=== PATIENT | male | born 1945 | race Caucasian/White ===

== ENCOUNTER 2017-03-27 01:28 | Emergency (ER) | payer OTHER ==
[2017-03-27] MEDS ORDERED: ONDANSETRON HCL IV 4 MG/2 ML VIAL IVP ONE (01:30)
[2017-03-27] MEDS ORDERED: MORPHINE SULFATE 5 MG/ML PFS IVP ONE ×2 (01:31→02:12)
--- NOTE | 2017-03-27 01:41 | Emergency Department Record ---
History of Present Illness - General Stated Complaint: POSSIBLE KIDNEY STONE Time Seen by Provider: 03/27/17 01:30 Source: Patient Mode of Arrival: Ambulatory Limitations: No limitations - History of Present Illness Initial Comments: 72 yo male presents to ED with a CC of right sided flan and abdominal pain sympotms that began 1.5 days ago, worsened tonight. Patient believes that he may have a kidney stone. Patient denies previous kidney stones, denies fevers, chills, or change in stools but reports nausea and vomiting x 1. Patient denies health problems at his baseline, and denies previous abdominal surgery. MD Complaint: Flank pain Onset/Timin -: Hour(s) Location: R Flank Radiation: RLQ Severity: Moderate Quality: Aching Consistency: Constant Improves With: Nothing Worsens With: Nothing Associated Symptoms: Denies other symptoms - Related Data Home Medications Medication Instructions Recorded Confirmed Last Taken Ranitidine HCl [Zantac] 75 mg PO DAILY 03/27/17 03/27/17 Unknown Previous Rx's Medication Instructions Recorded Hydrocodone/Acetaminophen [[place] 1 each PO Q6H PRN #15 tablet 03/27/17 5-325 Tablet] Tamsulosin HCl [Flomax] 0.4 mg PO DAILY #10 cap.er.24h 03/27/17 Allergies Allergy/AdvReac Type Severity Reaction Status Date / Time No Known Drug Allergies Allergy Verified 03/27/17 01:41 Review of Systems Constitutional: Denies: Chills, Fever, Malaise, Night sweats Eyes: Denies: Eye discharge, Eye pain ENT: Denies: Congestion, Ear pain, Epistaxis Respiratory: Denies: Cough, Dyspnea Cardiovascular: Denies: Chest pain, Dyspnea on exertion Endocrine: Denies: Fatigue, Heat or cold intolerance Gastrointestinal: Reports: Abdominal pain, Nausea, Vomiting. Denies: Constipation Genitourinary: Denies: Testicular pain, Testicular mass Musculoskeletal: Reports: Back pain. Denies: Arthralgia, Gout, Joint swelling Skin: Denies: Bruising, Change in color Neurological: Denies: Abnormal gait, Confusion, Headache, Seizure Psychiatric: Denies: Anxiety Hematological/Lymphatic: Denies: Anemia, Blood Clots Physical Exam - General General Appearance: Alert, Oriented x3, Cooperative, Moderate distress Limitations: No limitations - Head Head exam: Atraumatic, Normocephalic, Normal inspection Head exam detail: negative: Abrasion, Contusion, Davis's sign, General tenderness, Hematoma, Laceration - Eye Eye exam: Normal appearance. negative: Conjunctival injection, Periorbital swelling, Periorbital tenderness, Scleral icterus - ENT Ear exam: negative: Auricular hematoma, Auricular trauma Nasal Exam: negative: Active bleeding, Discharge, Dried blood, Foreign body Mouth exam: negative: Drooling, Laceration, Muffled voice, Tongue elevation - Neck Neck exam: Normal inspection. negative: Meningismus, Tenderness - Respiratory Respiratory exam: Normal lung sounds bilaterally. negative: Rales, Respiratory distress, Rhonchi, Stridor - Cardiovascular Cardiovascular Exam: Regular rate, Normal rhythm, Normal heart sounds - GI/Abdominal GI/Abdominal exam: Soft, Tenderness (Mild TTP RUQ, RLQ on examination). negative: Rebound, Rigid - Rectal Rectal exam: Deferred - exam: Deferred - Extremities Extremities exam: Normal inspection. negative: Calf tenderness, Pedal edema, Tenderness - Back Back exam: Reports: CVA tenderness (R). Denies: Paraspinal tenderness, Rash noted - Neurological Neurological exam: Alert, Normal gait, Oriented X3 - Psychiatric Psychiatric exam: Normal affect, Normal mood - Skin Skin exam: Normal color. negative: Abrasion Type of lesion: negative: abrasion Course - Reevaluation(s) Reevaluation #1: 03/27/17 02:18 Labs reviewed, UA demonstrates moderate amount of blood, labs are otherwise grossly unremarkable for an acute process. CT Abdomen and Pelvis: 4 mm obstructive calculus at the right ureterovesicular junction resulting in moderate right hydroureter and hydronephrosis. Patient was updated on all results, given repeat dose of Morphine and now Toradol for returning pain symptoms. Will re-evaluate in 20-30 minutes. Medical Decision Making - Lab Data Result diagrams: 03/27/17 01:40 03/27/17 01:40 Disposition Disposition: Discharge Clinical Impression: Kidney stone on right side Disposition: Home, Self-Care Condition: (2) Stable Instructions: Kidney Stones (ED) Additional Instructions: Return to ED if your symptoms worsen or if you have any concerns. Rosedale and Flomax as directed. Follow-up with Dr. Lay in 3-5 days in the [facility]. Prescriptions: Hydrocodone/Acetaminophen [[place] 5-325 Tablet] 1 each PO Q6H PRN #15 tablet PRN Reason: Pain - Moderate (5-7) Tamsulosin HCl [Flomax] 0.4 mg PO DAILY #10 cap.er.24h Referrals: HELEN LAY M.D. [MEDICAL DOCTOR] - [facility] [Provider Group] Forms: Patient Portal Access Time of Disposition: 02:50 Quality - Quality Measures Quality Measures: N/A - Blood Pressure Screening Does Patient Have Any of the Following: No Blood Pressure Classification: Pre-Hypertensive BP Reading Systolic Measurement: 146 Diastolic Measurement: 87 Screening for High Blood Pressure: < Pre-Hypertensive BP, F/U Documented > [ G8950] Pre-Hypertensive Follow-up Interventions: Referral to alternative/primary care provider.
[2017-03-27] MEDS ORDERED: 0.9 % SODIUM CHLORIDE 1000ML 1,000 ML IV SCH (01:45)
[2017-03-27 01:47] LABS: BASO % 0.2 % (0-6); EOS % 1.1 % (0-6); GRAN % 67.7 % (47-80); HEMATOCRIT 44.2 % (42.0-52.0); HEMOGLOBIN 15.5 gm/dl (14.0-18.0); LYMPH % 19.8 % (16-45); MEAN CELL VOLUME 88.8 fl (81-97); MEAN CORPUSCULAR HEMOGLOBIN 31.1 pg (27-33); MEAN CORPUSCULAR HGB CONC 35.1 g/dl (32-36); MEAN PLATELET VOLUME 11.5 fl (7.4-10.4); MONO % 11.2 % (0-9); PLATELET COUNT 149 K/uL (130-400); RED BLOOD COUNT 4.98 M/uL (4.40-5.70); WHITE BLOOD COUNT W/O DIFF 10.8 K/uL (4.2-12.2)
[2017-03-27 01:48] LABS: URINE APPEARANCE CLEAR; URINE BILIRUBIN NEGATIVE (NEGATIVE); URINE BLOOD MODERATE (NEGATIVE); URINE COLOR YELLOW; URINE GLUCOSE (UA) NEGATIVE (NEGATIVE); URINE KETONE NEGATIVE (NEGATIVE); URINE LEUKOCYTE ESTERASE NEGATIVE (NEGATIVE); URINE NITRITE NEGATIVE (NEGATIVE); URINE PROTEIN NEGATIVE (NEGATIVE); URINE UROBILINOGEN 0.2 E.U./dL (0.20 - 1.00)
[2017-03-27 02:01] LABS: URINE BACTERIA NONE SEEN; URINE EPITHELIAL CELLS 0 - 2 (FEW); URINE WBC 0 - 2 (0-2/hpf)
[2017-03-27 02:06] LABS: ALB/GLOB RATIO 1.4 (1.1-1.8); ALBUMIN 4.2 g/dL (4.0-5.0); ALKALINE PHOSPHATASE 90 U/L (40-129); ALT/SGPT 29 U/L (<41); AST/SGOT 25 U/L (10.0-50.0); BLOOD UREA NITROGEN 17 mg/dL (8-23); CREATININE 1.2 mg/dL (0.7-1.2); EST GLOMERULAR FILTRATION RATE > 60 mL/min; GLUCOSE,RANDOM 101 mg/dL (74-109); TOTAL PROTEIN 7.1 g/dL (6.6-8.7)
[2017-03-27] MEDS ORDERED: KETOROLAC 30 MG/ML VIAL IVP ONE (02:12)
[2017-03-27] MEDS ORDERED: HYDROCODONE/APAP 5/325MG TABLET PO ONE (02:50)
--- NOTE | 2017-03-28 09:56 | CT SCAN REPORT ---
EXAM: ABDOMEN AND PELVIS CT WITHOUT IV CONTRAST HISTORY: RIGHT LOWER QUADRANT ABDOMINAL PAIN FOR ONE AND A HALF DAYS. TECHNIQUE: Contiguous axial images from the lung bases to the symphysis pubis were obtained without IV contrast. Comparison: None. FINDINGS: The lung bases are clear. Geographic area of decreased attenuation predominantly involving the right lobe of the liver consistent with fatty infiltration. The spleen is unremarkable. Moderate right hydroureteronephrosis with partially obstructing 3 mm calculus at the right ureterovesical junction. The left kidney is unremarkable. The adrenals, pancreas and gallbladder are normal. The visualized loops of small and large bowel are of normal caliber. Normal appendix. Extensive diverticulosis of the sigmoid colon with no diverticulitis. No free intraperitoneal fluid or adenopathy. Fat containing inguinal hernias left greater than right. The osseous structures reveal no lytic or blastic lesion. IMPRESSION: 1. MODERATE RIGHT HYDRONEPHROSIS DUE TO PARTIALLY OBSTRUCTING 3 MM CALCULUS AT THE RIGHT URETEROVESICAL JUNCTION. 2. HEPATIC STEATOSIS. 3. FAT CONTAINING INGUINAL HERNIAS. 4. SIGMOID COLON DIVERTICULOSIS. JOB NUMBER: [id number] MTDD
== END 2017-03-27 03:04 | disposition home or self-care (01) ==
LOC: ER 01:28
DX: N13.2 Hydronephrosis with renal and ureteral calculous obstruction (principal); R11.2 Nausea with vomiting, unspecified
CPT/HCPCS: 99284 ×2; 96376; 96374; 96375; 85025; 80053; 81001; 74176; J1885; J2405; J2270; J7030

== ENCOUNTER 2017-07-27 16:45 | Emergency (ER) | payer MEDICARE, OTHER ==
--- NOTE | 2017-07-27 17:48 | Emergency Department Record ---
History of Present Illness - General Chief complaint: Flu Like Symptoms Stated complaint: FLU SYMPTOMS Time Seen by Provider: 07/27/17 17:43 Source: Patient Mode of Arrival: Ambulatory Limitations: No limitations - History of Present Illness Initial comments: 72 yo male presents to ED for probable influenza. Patient reports decreased appetite, chills, myalgias, nonproductive cough symptoms, and headache for 2 days. Patient denies health problems at his baseline, denies nausea, vomiting, abdominal pain, or urinary symptoms. MD Complaint: Generalized weakness Onset/Timin -: Days(s) Location: Generalized Severity: Moderate Severity scale (1-10): 8 Quality: Aching Consistency: Constant Improves with: None Worsens with: None Associated Symptoms: Denies other symptoms - Lena Coma Scale Eye Response: (4) Open spontaneously Motor Response: (6) Obeys commands Verbal Response: (5) Oriented [place] Total: 15 - Related Data Previous Rx's Medication Instructions Recorded Oseltamivir Phosphate [Tamiflu] 75 mg PO BID #9 capsule 07/27/17 Allergies Allergy/AdvReac Type Severity Reaction Status Date / Time No Known Drug Allergies Allergy Verified 07/27/17 17:40 Travel Screening - Travel/Exposure Within Last 30 Days Have you traveled within the last 30 days?: No - Travel/Exposure Within Last Year Have you traveled outside the [place] in the last year?: No - Additonal Travel Details Have you been exposed to anyone with a communicable illness?: No - Travel Symptoms Symptom Screening: None Review of Systems Constitutional: Reports: Chills, Fever, Malaise, Weakness. Denies: Night sweats Eyes: Denies: Eye discharge, Eye pain ENT: Denies: Congestion, Ear pain, Epistaxis Respiratory: Denies: Cough, Dyspnea Cardiovascular: Denies: Chest pain, Dyspnea on exertion Endocrine: Denies: Fatigue, Heat or cold intolerance Gastrointestinal: Denies: Abdominal pain, Nausea, Vomiting Genitourinary: Denies: Incontinence, Retention Musculoskeletal: Denies: Arthralgia, Back pain, Gout, Joint swelling Skin: Denies: Bruising, Change in color Neurological: Reports: Headache. Denies: Abnormal gait, Confusion, Seizure Psychiatric: Denies: Anxiety Hematological/Lymphatic: Denies: Anemia, Blood Clots Past Medical History - SOCIAL HISTORY Smoking Status: Never smoker Alcohol Use: None Drug Use: None - RESPIRATORY Hx Respiratory Disorders: No - CARDIOVASCULAR Hx Cardio Disorders: No - NEURO Hx Neuro Disorders: No - GI Hx GI Disorders: No - Hx Genitourinary Disorders: Yes Hx Kidney Stones: Yes - ENDOCRINE Hx Endocrine Disorders: No - MUSCULOSKELETAL Hx Musculoskeletal Disorders: No - PSYCH Hx Psych Problems: No - HEMATOLOGY/ONCOLOGY Hx Hematology/Oncology Disorders: No Family Medical History Any Significant Family History?: Yes Physical Exam - General General Appearance: Alert, Oriented x3, Cooperative, Mild distress Limitations: No limitations - Head Head exam: Atraumatic, Normocephalic, Normal inspection Head exam detail: negative: Abrasion, Contusion, Davis's sign, General tenderness, Hematoma, Laceration - Eye Eye exam: Normal appearance. negative: Conjunctival injection, Periorbital swelling, Periorbital tenderness, Scleral icterus - ENT Ear exam: negative: Auricular hematoma, Auricular trauma Nasal Exam: negative: Active bleeding, Discharge, Dried blood, Foreign body Mouth exam: negative: Drooling, Laceration, Muffled voice, Tongue elevation - Neck Neck exam: Normal inspection. negative: Meningismus, Tenderness - Respiratory Respiratory exam: Normal lung sounds bilaterally. negative: Rales, Respiratory distress, Rhonchi, Stridor - Cardiovascular Cardiovascular Exam: Regular rate, Normal rhythm, Normal heart sounds - GI/Abdominal GI/Abdominal exam: Soft. negative: Rebound, Rigid, Tenderness - Rectal Rectal exam: Deferred - exam: Deferred - Extremities Extremities exam: Normal inspection. negative: Calf tenderness, Pedal edema, Tenderness - Back Back exam: Denies: CVA tenderness (R), CVA tenderness (L) - Neurological Neurological exam: Alert, Normal gait, Oriented X3 - Psychiatric Psychiatric exam: Normal affect, Normal mood - Skin Skin exam: Normal color. negative: Abrasion Type of lesion: negative: abrasion Course Vital Signs 07/27/17 17:33 Temperature 99.5 F Pulse Rate 75 Respiratory 18 Rate Blood Pressure 139/113 Pulse Ox 96 - Reevaluation(s) Reevaluation #1: 07/27/17 18:09 Influenza: A positive Patient was updated on all results, VSS, will initiate treatment with Tamiflu as directed. Patient agrees with the plan as discussed. Disposition Disposition: Discharge Clinical Impression: Influenza A Disposition: Home, Self-Care Condition: (2) Stable Instructions: Influenza (ED) Additional Instructions: Return to ED if your symptoms worsen or if you have any concerns. Tamiflu as directed. Follow-up with your family doctor in 1-3 days as directed. Tylenol/Motrin as directed. Prescriptions: Oseltamivir Phosphate [Tamiflu] 75 mg PO BID #9 capsule Forms: Patient Portal Access Time of Disposition: 18:11 Quality - Quality Measures Quality Measures: N/A - Blood Pressure Screening Does Patient Have Any of the Following: No Blood Pressure Classification: Hypertensive Reading Systolic Measurement: 139 Diastolic Measurement: 113 Screening for High Blood Pressure: < First Hypertensive BP, F/U Documented > [ G8950] First Hypertensive Follow-up Interventions: Referral to alternative/primary care provider.
[2017-07-27 18:03] LABS: INFLUENZA A POSITIVE (NEGATIVE); INFLUENZA B NEGATIVE (NEGATIVE)
[2017-07-27] MEDS ORDERED: OSTELTAMIVIR 75 MG CAP PO ONE (18:16)
== END 2017-07-27 18:42 | disposition home or self-care (01) ==
LOC: ER 16:45
DX: J10.1 Influenza due to other identified influenza virus with other respiratory manifestations (principal)
CPT/HCPCS: 87400; 99282